=== PATIENT | female | born 1955 | race Caucasian/White ===

== ENCOUNTER 2021-07-12 11:09 | Observation (INO) | payer BC ==
[~2021-07-12] VITALS: Ht 152.4 cm; Wt 42.6 kg
[~2021-07-12 11:09] MED LIST: ADVAIR HFA 230-28 GM INH; BENTYL 10MG CAP10 MG PO; IBUPROFEN800 MG PO; NEURONTIN800 MG PO; PERCOCET 5/325 T1 EA PO; ZANAFLEX4 M1 PO; ZOFRAN ODT 4 MG4 MG PO; ZOFRAN4 MG PO
[2021-07-12 12:00] LABS: RED BLOOD COUNT 4.64 M/UL (4.00-5.10); WHITE BLOOD COUNT 3.9 K/UL (4.5-11.0)
[2021-07-12 13:03] LABS: BUN/CREATININE RATIO 10 (0-10)
[2021-07-12] MEDS ORDERED: ALBUTEROL2.5 MG/3 M NEB (14:18)
[2021-07-12] MEDS ORDERED: IBU800 MG PO (14:19)
[2021-07-12] MEDS ORDERED: PREDNISONE10 MG PO (14:19)
[2021-07-12] MEDS ORDERED: PROAIR DIGIHAL90 MCG INH (16:28)
[2021-07-12] MEDS ORDERED: BUPRENORPHIN-N1 EACH SL (16:34)
[2021-07-13 07:02] LABS: HEMOGLOBIN 12.1 gm/dl (12.3-15.3); RED BLOOD COUNT 4.1 M/UL (4.00-5.10); WHITE BLOOD COUNT 3.3 K/UL (4.5-11.0)
[2021-07-13 07:39] LABS: BUN/CREATININE RATIO 20 (0-10)
[2021-07-14] MEDS ORDERED: VITAMIN C 500500 MG PO (10:48)
[2021-07-14] MEDS ORDERED: DECADRON6 MG PO (10:48)
[2021-07-14] MEDS ORDERED: CEFUROXIME500 MG PO (10:48)
== END 2021-07-14 13:47 | disposition home or self-care (01) ==
LOC: ER1 11:09 → MED SURG 4 13:26 → CDU 13:26 → MED SURG 4 15:29
PROVIDERS: Nurse Practitioner; Physician Assistant Medical; ADMIT Internal Medicine
DX: U07.1 COVID-19 (principal); J12.82 Pneumonia due to coronavirus disease 2019; J96.21 Acute and chronic respiratory failure with hypoxia; I10 Essential (primary) hypertension; J44.9 Chronic obstructive pulmonary disease, unspecified; F41.9 Anxiety disorder, unspecified; F32.A Depression, unspecified; G89.4 Chronic pain syndrome; K27.9 Peptic ulcer, site unspecified, unspecified as acute or chronic, without hemorrhage or perforation; F17.210 Nicotine dependence, cigarettes, uncomplicated; Z23 Encounter for immunization; Z99.81 Dependence on supplemental oxygen; Z88.5 Allergy status to narcotic agent; Z88.8 Allergy status to other drugs, medicaments and biological substances; Z79.899 Other long term (current) drug therapy
CPT/HCPCS: 36600; 71045; 73502; 73552; 80048; 80053; 81001; 82550; 82553; 82803; 83735; 83874; 84484; 85025; 85027; 93005; 94640; 94760; G0378; J0456; J0696; J1100; J1650; J1885; J2930; J7030; U0002

== ENCOUNTER → 2021-08-01 15:22 | Emergency (ER) | payer BC ==
[~2021-08-01 15:22] MED LIST changes: +ALBUTEROL2.5 MG/3 M NEB; +BUPRENORPHIN-N1 EACH SL; +CEFUROXIME500 MG PO; +DECADRON6 MG PO; +IBU800 MG PO; +PREDNISONE10 MG PO; +PROAIR DIGIHAL90 MCG INH; +VITAMIN C 500500 MG PO
== END | disposition left against medical advice (07) ==
LOC: ER1 15:22
DX: Z53.21 Procedure and treatment not carried out due to patient leaving prior to being seen by health care provider (principal)

== ENCOUNTER → 2021-08-02 | Outpatient (CLI) | payer BC | LOC: HEART 5 13:35 → EXRD 13:35 → HEART 5 14:00 | DX: R09.89 Other specified symptoms and signs involving the circulatory and respiratory systems (principal) | CPT/HCPCS: 93926; 93971 ==

== ENCOUNTER 2021-08-12 16:30 | Emergency (ER) | payer BC | END 2021-08-12 17:36 | disposition home or self-care (01) | LOC: ER1 16:30 | DX: H61.23 Impacted cerumen, bilateral (principal); F17.210 Nicotine dependence, cigarettes, uncomplicated | CPT/HCPCS: 99282 ==

== ENCOUNTER 2021-08-31 13:03 | Emergency (ER) | payer BC ==
[2021-08-31 14:18] LABS: HEMOGLOBIN 15.1 gm/dl (12.3-15.3); RED BLOOD COUNT 5.04 M/UL (4.00-5.10); WHITE BLOOD COUNT 8.3 K/UL (4.5-11.0)
[2021-08-31 14:39] LABS: BUN/CREATININE RATIO 18 (0-10)
[2021-08-31] MEDS ORDERED: ANTIVERT 12.512.5 MG PO (16:36)
== END 2021-08-31 16:45 | disposition home or self-care (01) ==
LOC: ER1 13:03
PROVIDERS: Preventive Medicine Occupational Medicine
DX: F41.9 Anxiety disorder, unspecified (principal)
CPT/HCPCS: 70450; 71045; 80053; 81001; 82550; 82553; 84484; 85025; 86140; 87086; 93005; 96374; 99284; J2060

== ENCOUNTER 2021-09-30 13:17 | Emergency (ER) | payer BC ==
[~2021-09-30 13:17] MED LIST changes: +ANTIVERT 12.512.5 MG PO
== END 2021-09-30 16:53 | disposition left against medical advice (07) ==
LOC: ER1 13:17
DX: Z53.21 Procedure and treatment not carried out due to patient leaving prior to being seen by health care provider (principal)
CPT/HCPCS: 73502

== ENCOUNTER 2021-10-07 11:58 | Emergency (ER) | payer BC ==
[2021-10-07] MEDS ORDERED: MEDROL DOSEPAK 24 MG PO (13:08)
== END 2021-10-07 13:29 | disposition home or self-care (01) ==
LOC: ER1 11:58
DX: M25.551 Pain in right hip (principal); F17.200 Nicotine dependence, unspecified, uncomplicated; Z88.8 Allergy status to other drugs, medicaments and biological substances; I10 Essential (primary) hypertension
CPT/HCPCS: 73700; 99283

== ENCOUNTER 2022-04-23 13:20 | Emergency (ER) | payer BC ==
[~2022-04-23 13:20] MED LIST changes: +MEDROL DOSEPAK 24 MG PO
== END 2022-04-23 14:13 | disposition left against medical advice (07) ==
LOC: ER1 13:20
DX: Z53.21 Procedure and treatment not carried out due to patient leaving prior to being seen by health care provider (principal)